=== PATIENT | male | born 1960 | race African-American/Black ===

== ENCOUNTER 2016-12-24 13:26 | Emergency (ER) | payer OTHER ==
[~2016-12-24] VITALS: Ht 190.5 cm; Wt 114.6 kg
[2016-12-24 13:50] LABS: POINT-OF-CARE METER ID UU14100415
[2016-12-24 15:52] LABS: HEMATOCRIT 39.6 % (38.0-50.0); MCH 29.4 PG (29.0-34.0); MCHC 34.8 G/DL (30.0-36.0); MCV 84.3 FL (86-99); MEAN PLAT.VOLUME 10.8 uM^3 (9.0-12.4); PLATELET COUNT 268 K/uL (156-360); RBC DIS.WIDTH-CV 13.3 % (11.8-14.6); RBC DIS.WIDTH-SD 40.3 % (39-53); WHITE BLOOD COUNT 9.7 K/uL (4.1-10.2)
[2016-12-24 16:03] LABS: CHLORIDE 107 mEq/L (99-109); POTASSIUM 4.1 mEq/L (3.7-5.4); SODIUM 139 mEq/L (136-147)
[2016-12-24 16:05] LABS: GLUCOSE 96 mg/dL (70-99)
[2016-12-24 16:07] LABS: ANION GAP 8 MEQ/L (2-14)
[2016-12-24 16:09] LABS: GFR ESTIMATE (CALCULATED) > 59 mL/min/
[2016-12-24 16:10] LABS: UREA NITROGEN (BUN) 14 mg/dL (9-23)
[2016-12-24 16:36] LABS: ADD MIUA? NO; BILIRUBIN NEGATIVE; BLOOD NEGATIVE; COLOR YELLOW ((YELLOW)); GLUCOSE (STRIP) NEGATIVE; KETONES NEGATIVE; LEUKOCYTES NEGATIVE; NITRITE NEGATIVE; PROTEIN (STRIP) NEGATIVE; SPECIFIC GRAVITY 1.013 (1.000-1.030); UROBILINOGEN 0.2 MG/DL (0.2-1.0)
[2016-12-24 17:12] VITALS: BP 143/81
== END 2016-12-24 17:24 ==
LOC: EME 13:26
PROVIDERS: Physician Assistant Medical
DX: R56.9 Unspecified convulsions (principal); M79.604 Pain in right leg; M79.605 Pain in left leg; R20.2 Paresthesia of skin
CPT/HCPCS: 70450; 72148; 80048; 81003; 82948; 85027; 99281; 99284